=== PATIENT | male | born 1970 | race Caucasian/White ===

== ENCOUNTER → 2019-09-23 | Outpatient (CLI) | payer SELFPAY ==
[~2019-09-23] MED LIST: CYCL10 PO; IBUP600 PO; OXYACE5T PO
== END | disposition home or self-care (01) ==
LOC: LAB SHORT 12:27 → LAB 12:27
DX: E78.5 Hyperlipidemia, unspecified (principal)
CPT/HCPCS: 82043

== ENCOUNTER 2025-04-04 11:45 | Day surgery (SDC) | payer OTHER ==
[~2025-04-04] VITALS: Ht 193 cm; Wt 122.0 kg
[2025-04-04] MEDS ORDERED: IBUP600 PO (13:37)
[2025-04-04] MEDS ORDERED: DEPO-TESTO200 MG/18 IM (13:37)
[2025-04-04] MEDS ORDERED: VILAZODONE HCL20 MG PO (13:37)
[2025-04-04] MEDS ORDERED: BUPROPION XL150 M1 PO (13:38)
[2025-04-04] MEDS ORDERED: ATOR40TA PO (13:38)
[2025-04-04] MEDS ORDERED: BUSPIRONE HCL10 M6 PO (13:38)
[2025-04-04] MEDS ORDERED: STEGLATRO5 MG PO (13:38)
[2025-04-04] MEDS ORDERED: NEURONTIN300 MG PO (13:39)
[2025-04-04] MEDS ORDERED: HYDHCL25 (13:39)
[2025-04-04] MEDS ORDERED: Prinivil10 MG PO (13:39)
[2025-04-04] MEDS ORDERED: CeFAZolin Sodium 3,000 MG VIAL ONE (13:41)
[2025-04-04] MEDS ORDERED: Bupivacaine 0.25% Epi 1:200000 30 ML Vial ONE (13:47)
[2025-04-04] MEDS ORDERED: Midazolam HCl 1MG / ML 2ML Vial ONE (14:03)
[2025-04-04] MEDS ORDERED: Ondansetron HCl 2 MG / ML 2ML Vial ONE (14:11)
[2025-04-04] MEDS ORDERED: Dexamethasone Sod Phos 10 MG/ML 1ML VIAL ONE (14:11)
[2025-04-04] MEDS ORDERED: FentaNYL Citrate 50 MCG/ML 2 ML Injection ONE ×2 (14:22→15:18)
[2025-04-04] MEDS ORDERED: Bupivacaine 0.5% W/EPI 1:200000 SDV 30 ML Vial ONE (14:28)
[2025-04-04 17:35] VITALS: BP 158/89
--- NOTE | 2025-04-04 17:39 | NUR ---
04/04/251738 Stephany Berry PT DENIED ANY PAIN, NO NAUSEA. PT ABLE TO TOLERATE FLUIDS WELL. PT EDUCATION PROVIDED TO PT AND HIS FRIEND--BRIANNA. ALL QUESTIONS ANSWERED AND CONCERNS ADDRESSED. PT PLEASANT AND COOPERATIVE WITH CARE PROVIDED. 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 PT ENCOURAGED TO TAKE NICE DEEP BREATHES AND COUGH TO CLEAR HIS LUNGS. PT SOMEWHAT STEADY ON HIS FEET, AMBULATED TO HIS PRIVATE VEHICLE WITH ASSISTANCE FROM HIS FRIEND, BRIANNA. PT COLLECTED ALL PERSONAL BELONGINGS. PT STATED THAT HE WAS HUNGRY FOR A BURRITO. THIS RN WAS AT HIS SIDE HE WALKED OUT OF THE FACILITY.
== END 2025-04-04 17:20 | disposition home or self-care (01) ==
LOC: ORSCSDS 11:45
PROVIDERS: Orthopaedic Surgery
PROC: 01N50ZZ Release Median Nerve, Open Approach (ICD-10-PCS; principal; 2025-04-04 13:45)
PROC: 01N40ZZ Release Ulnar Nerve, Open Approach (ICD-10-PCS; principal; 2025-04-04 13:45)
DX: G56.01 Carpal tunnel syndrome, right upper limb (principal); G56.21 Lesion of ulnar nerve, right upper limb; I10 Essential (primary) hypertension; E78.5 Hyperlipidemia, unspecified; E11.9 Type 2 diabetes mellitus without complications; E66.9 Obesity, unspecified; Z68.38 Body mass index [BMI] 38.0-38.9, adult; Z79.899 Other long term (current) drug therapy
CPT/HCPCS: 82947; J0690; J1100; J2250; J2405; J2704; J3010; J7120